=== PATIENT | female | born 1995 | race Hispanic/Latino ===

== ENCOUNTER 2017-08-27 18:02 | Emergency (ER) | payer OTHER, SELFPAY ==
[2017-08-27 18:03] VITALS: BP 137/93; PULSE 82; RESP 18; TEMP 36.9; O2SAT 100; BMI 24.0
--- NOTE | 2017-08-27 18:24 | ED.VISSUMM ---
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 She reports that she had intercourse with someone 5-6 weeks ago and got a text from them saying that they have chlamydia. She denies any symptoms. She has no abdominal pain, vaginal bleeding, vaginal discharge, dysuria, fever, or chills. Last menstrual period was August 08. Physical Examination: Vitals: Stable. Afebrile. General: Well-nourished and well-developed. Head: Normocephalic atraumatic. Neck: Supple, no lymphadenopathy. No JVD. Nontender. Cardiovascular: Regular rate and rhythm. No murmurs. Respiratory: No respiratory distress. Clear to auscultation bilaterally. Abdominal: Soft, nontender, nondistended, normal bowel sounds. No guarding, rebound, or peritoneal signs. Back: Nontender. Extremities: Nontender, no edema. Skin: Normal color, no rash. Neurologic: Alert and oriented ?3. Cranial nerves II through XII are intact. Normal strength and sensation. Psych: Normal affect. Test Results: test is negative. Gonorrhea is negative. Chlamydia is positive. Emergency Department Course and Treatment: The patient had gone home prior to return of the gonorrhea and chlamydia test. I contacted her and she will return to the emergency department for his dose of Zithromax. Treatment Plan: Instructed to follow-up Dr. Karly Kapadia in 1 week for another exam. Return to the emergency department for any worsening symptoms. Disposition: To home in improved and stable condition. Impression: 1. Cervicitis from chlamydia. This note was generated with CURRENT dictation software. It may contain incorrect words, spelling, and punctuation that were not noted in review of the chart prior to signing ED Disposition - Plan for ED Patient: Disposition: Home or Assisted Living Chief Complaint: Female C/O Instructions: ED Chlamydia Female Referrals: Karly Kapadia MD [STAFF PHYSICIAN] - 1-2 Weeks
[2017-08-27 19:34] VITALS: BP 144/78; PULSE 71; RESP 17; O2SAT 99
[2017-08-27 19:40] LABS: Internal QC Validated? YES +Cl - CLEAR BKGD; Pregnancy, Urine Negative Negative
[2017-08-27 21:48] LABS: Neisserai gonorrhoeae by PCR Negative (Negative); Probe Check PASS
[2017-08-27 21:50] LABS: Chlamydia Trachomatis by PCR POSITIVE (Negative)
--- NOTE | 2017-08-27 21:53 | ED.RN ---
lab called with positive results. patient positive for chlamydia. Dr. Aaron made aware. Dr. aaron will contact patient for further care
== END 2017-08-27 19:35 | disposition home or self-care (01) ==
LOC: ED 18:40
PROVIDERS: Emergency Provider Emergency Medicine
DX: A56.09 Other chlamydial infection of lower genitourinary tract (principal)
CPT/HCPCS: 81025; 87491; 87591; 99282

== ENCOUNTER 2017-08-27 22:31 | Emergency (ER) | payer OTHER, SELFPAY ==
[2017-08-27 22:32] VITALS: BP 137/88; PULSE 68; RESP 18; TEMP 36.8; O2SAT 98; BMI 23.8
[2017-08-27 23:20] VITALS: PULSE 76; RESP 16; O2SAT 99; BMI 23.8
[2017-08-27] MEDS: Azithromycin 250 MG Tablet 1000 MG PO (23:26)
== END 2017-08-27 23:38 | disposition home or self-care (01) ==
LOC: ED 22:37
PROVIDERS: Emergency Provider Emergency Medicine
DX: A56.09 Other chlamydial infection of lower genitourinary tract (principal)
CPT/HCPCS: 99283